=== PATIENT | female | born 1975 | race Caucasian/White ===

== ENCOUNTER 2016-08-13 08:05 | Inpatient (IN) | payer BC ==
[~2016-08-13] VITALS: Ht 154.9 cm; Wt 63.6 kg
[2016-08-13] VITALS (21 sets, daily range): BP systolic 105–130; BP diastolic 59–84
[2016-08-13] MEDS ORDERED: EXPECTA PRENAT1 EACH PO (08:40)
[2016-08-13 09:07] LABS: EOSINOPHIL (%) 3.2 % (0-5); EOSINOPHIL COUNT 0.3 K/uL (0-0.3); HEMATOCRIT 41.3 % (36.0-46.0); IMMATURE GRANULOCYTE (%) 0.4 % (0.0-0.7); LYMPHOCYTE COUNT 1.3 K/uL (1.0-2.8); MCHC 33.2 G/DL (30.0-36.0); MCV 87.3 FL (83-99); MEAN PLAT.VOLUME 11.2 uM^3 (9.5-12.4); MONOCYTE (%) 7.9 % (3-12); MONOCYTE COUNT 0.8 K/uL (0-0.8); NEUTROPHIL (%) 74.9 % (45-76); NEUTROPHIL COUNT 7.1 K/uL (1.8-6.4); PLATELET COUNT 151 K/uL (156-360); RBC DIS.WIDTH-SD 41.4 % (39-53); RED BLOOD COUNT 4.73 M/uL (3.80-5.20); WHITE BLOOD COUNT 9.5 K/uL (4.1-10.2)
[2016-08-14 07:37] LABS: EOSINOPHIL (%) 1.7 % (0-5); EOSINOPHIL COUNT 0.2 K/uL (0-0.3); HEMATOCRIT 33.5 % (36.0-46.0); IMMATURE GRANULOCYTE (%) 0.3 % (0.0-0.7); LYMPHOCYTE COUNT 1.6 K/uL (1.0-2.8); MCH 29.6 PG (29.0-34.0); MCHC 33.7 G/DL (30.0-36.0); MCV 87.7 FL (83-99); MEAN PLAT.VOLUME 11.3 uM^3 (9.5-12.4); MONOCYTE (%) 6.5 % (3-12); MONOCYTE COUNT 0.9 K/uL (0-0.8); NEUTROPHIL (%) 79.3 % (45-76); NEUTROPHIL COUNT 10.4 K/uL (1.8-6.4); PLATELET COUNT 138 K/uL (156-360); RBC DIS.WIDTH-CV 13.1 % (11.8-14.6); RBC DIS.WIDTH-SD 42.1 % (39-53); RED BLOOD COUNT 3.82 M/uL (3.80-5.20)
[2016-08-14 07:38] LABS: WHITE BLOOD COUNT 13.1 K/uL (4.1-10.2)
[2016-08-14 07:55] VITALS: BP 119/71
[2016-08-14 14:43] VITALS: BP 107/66
[2016-08-14 22:38] VITALS: BP 108/65
[2016-08-15] MEDS ORDERED: CAMILA0.35 MG PO (11:50)
[2016-08-15] MEDS ORDERED: IBUPROFEN800 MG PO (11:50)
[2016-08-15 15:08] VITALS: BP 125/69
== END 2016-08-15 17:51 | disposition home or self-care (01) | DRG 774 ==
LOC: LDRP-OP 08:05 → 2WEST 08:06 → LDRP-OP 09-15 22:07
PROVIDERS: Advanced Practice Midwife
DX: O75.89 Other specified complications of labor and delivery (principal); O98.32 Other infections with a predominantly sexual mode of transmission complicating childbirth; A63.0 Anogenital (venereal) warts; Z3A.39 39 weeks gestation of pregnancy; Z37.0 Single live birth; O09.523 Supervision of elderly multigravida, third trimester
CPT/HCPCS: 85025; C1755; J3010; J7120

== ENCOUNTER 2016-09-27 17:18 | Emergency (ER) | payer BC ==
[~2016-09-27] VITALS: Ht 154.9 cm; Wt 52.8 kg
[~2016-09-27 17:18] MED LIST: CAMILA0.35 MG PO; EXPECTA PRENAT1 EACH PO; IBUPROFEN800 MG PO
[2016-09-27 18:13] LABS: HEMATOCRIT 40.5 % (36.0-46.0); MCH 28.9 PG (29.0-34.0); MCHC 32.8 G/DL (30.0-36.0); MEAN PLAT.VOLUME 10.6 uM^3 (9.5-12.4); PLATELET COUNT 266 K/uL (156-360); RBC DIS.WIDTH-CV 12.4 % (11.8-14.6); RBC DIS.WIDTH-SD 40.6 % (39-53); WHITE BLOOD COUNT 9.1 K/uL (4.1-10.2)
[2016-09-27 20:27] LABS: ADD MIUA? YES; BILIRUBIN NEGATIVE; BLOOD MODERATE; COLOR YELLOW ((YELLOW)); GLUCOSE (STRIP) NEGATIVE; KETONES 5; LEUKOCYTES TRACE; NITRITE NEGATIVE; PROTEIN (STRIP) 100; SPECIFIC GRAVITY 1.033 (1.000-1.030); UROBILINOGEN 0.2 MG/DL (0.2-1.0)
[2016-09-27 21:09] LABS: EPITHELIAL CELLS 2+ /HPF; MUCUS 2+ /LPF; RED BLOOD CELLS TNTC /HPF (0-5); WHITE BLOOD CELLS 0-5 /HPF (0-5)
[2016-09-27 21:10] LABS: BACTERIA 2+ /HPF; UCUL ADDED? NO
[2016-09-27] MEDS ORDERED: LEVAQUIN750 MG PO (21:58)
[2016-09-27] MEDS ORDERED: ULTRAM50 MG PO (21:58)
[2016-09-27] MEDS ORDERED: ZOFRAN ODT4 MG PO (21:58)
[2016-09-27] MEDS ORDERED: NORCO 5/3251 TABLET PO (22:18)
[2016-09-27 22:48] VITALS: BP 118/76
== END 2016-09-27 22:49 | disposition home or self-care (01) ==
LOC: RME 17:18 → EME 17:18 → RME 22:49
DX: O72.1 Other immediate postpartum hemorrhage (principal); R10.30 Lower abdominal pain, unspecified; M79.1 Myalgia; R19.7 Diarrhea, unspecified
CPT/HCPCS: 76856; 81003; 84702; 85027; 87086; 99281; 99284